=== PATIENT | male | born 2005 | race Hispanic/Latino ===

== ENCOUNTER 2023-06-24 10:44 | Emergency (ER) | payer SELFPAY ==
[2023-06-24 10:47] VITALS: BP 166/103
[2023-06-24 11:37] VITALS: BP 165/108
[2023-06-24 11:41] VITALS: BMI 25.8
[2023-06-24 12:00] VITALS: BP 157/102
[2023-06-24 12:41] VITALS: BP 145/98
--- NOTE | 2023-06-24 13:21 | ED.GENMED ---
History of Present Illness
General
Chief Complaint: Blood Pressure Problem
Source: patient
Exam Limitations: none
Time Seen by Provider: 06/24/23 12:46
Travel History
Have you had any contact with someone who has COVID-19?: No
Do you have any symptoms of coronavirus? Fever > 100 degrees, chills, cough, shortness of breath, sore throat, loss of taste or smell, muscle aches, or headache?: No
History of Present Illness
History of Present Illness:
17-year-old male presents for evaluation of headache and elevated blood pressure. He was taking a test and had a headache and went to the nurses office. He was found to have elevated blood pressure and sent here. He is companied by the school
principal. He denies chest pain or shortness of breath. No vision change no unilateral numbness or weakness. No fever. He states he did not get a lot of sleep last night. No other complaints at this time
Phy Exam
Physical Exam
Physical Exam:
General: Well-appearing male nontoxic no acute respiratory distress
HEENT: Normocephalic atraumatic
Heart: Regular rate and rhythm no murmurs
Lungs: Clear no wheeze or rales
Neurologic exam: Alert and oriented x 3 pupils equal round reactive to light extraocular's are intact conversing appropriately
Extremities: No cyanosis or edema
Course
Vital Signs
Initial and Last Documented VS:
Initial Vital Signs
Temp Pulse Resp BP Pulse Ox
98.0 F 89 16 166/103 100
06/24/23 10:47 06/24/23 10:47 06/24/23 10:47 06/24/23 10:47 06/24/23 10:47
Last Documented Vital Signs
Temp Pulse Resp BP Pulse Ox
98.0 F 89 16 145/98 99
06/24/23 10:47 06/24/23 10:47 06/24/23 10:47 06/24/23 12:41 06/24/23 12:41
MDM/Problems Addressed
Differential Diagnosis Includes:
Patient states on my exam that he is feeling much better. Blood pressure is improved. Exam is normal. No deficit. Recommend follow-up with family doctor for blood pressure recheck but no indication for any intervention at this point.
*Critical Care Note
Total Time (30-74mins, 75-104mins- exclusive of procedures): Not Applicable
ED Attending Note
-
Portions of this chart may have been created with voice recognition software.� Occasional wrong word or��sound alike� substitutions may have occurred due to the inherent limitations of voice recognition software.
Discharge Plan
Departure
Patient Disposition: Home (Routine Discharge)
Date of Disposition: 06/24/23
Time of Disposition: 13:25
Patient with high blood pressure during this ER visit?: No
Discharge Problem:
Elevated blood pressure reading
Instructions: BLOOD PRESSURE
Activity Restrictions/Additional Instructions:
Please recheck with family doctor for blood pressure recheck. Return here for worsening symptoms
Interventions
Interventions:
ED- Fall Risk Assessment Last Done: 06/24/23 11:41
*ED COVID-19 Vaccine History Last Done: 06/24/23 10:47
ED- Cardiac Assessment Last Done: 06/24/23 11:41
ED- Neurological Assessment Last Done: 06/24/23 11:41
ED- Pulmonary Assessment Last Done: 06/24/23 11:41
Discharge Date and Time
Print Language: LATVIAN
== END 2023-06-24 13:53 | disposition home or self-care (01) ==
LOC: EMR 10:44
PROVIDERS: EMERGENCY PHYSICIAN Emergency Medicine; FAMILY PHYSICIAN Nurse Practitioner Adult Health
DX: R51.9 Headache, unspecified (principal); R03.0 Elevated blood-pressure reading, without diagnosis of hypertension
CPT/HCPCS: 99281